=== PATIENT | male | born 1940 ===

== ENCOUNTER → 2018-03-25 | Outpatient (CLI) | payer MEDICARE, BC ==
[~2018-03-25] MED LIST: DENOSUMAB 120 MG/1.7 ML VIAL SUBQ ONE; LEUPROLIDE ACET 22.5 MG KIT SUBQ ONE
[2018-03-25 09:42] VITALS: BP 175/91
[2018-03-25 10:09] LABS: PLATELET COUNT, AUTOMATED 195 K/uL (150-450)
== END ==
LOC: SPU 08:31
PROVIDERS: ATTEND Specialist
DX: C61 Malignant neoplasm of prostate (principal)
CPT/HCPCS: 36415; 84153; 85025; 96372; J0897; J9217; 82040; 82247; 82310; 82374; 82435; 82565; 82947; 84075; 84132; 84155; 84295; 84450; 84460; 84520